=== PATIENT | female | born 1960 | race Caucasian/White ===

== ENCOUNTER 2016-10-02 08:38 | Emergency (ER) | payer OTHER ==
[~2016-10-02] VITALS: Ht 162.6 cm; Wt 68.0 kg
[~2016-10-02 08:38] MED LIST: ADVAIR 250-501 EACH INH; ADVAIR DISKUS 21 DSK INH; ADVIL200 MG PO; BENADRYL ALLERG25 M2 PO; BETAMETHASONE D15 GM TOP; CHERATUSSIN AC120 ML PO; CLEOCIN HCL300 M1 PO; DIPHENHYDRAMINE25 M4 PO; DOXYCYCLINE MO100 MG PO; DOXYCYCLINE100 MG PO; FLAG500 PO; GABAPENTIN100 M2 PO; HYDROCODONE/APA1 TA1 PO; IBUPROFEN600 M1 PO; IBUPROFEN800 M1 PO; MEDROL4 M2 PO; MUCINEX1200 M1 PO; NAPROXEN500 M2 PO; NORCO 325 MG-51 TAB PO; PANTOPRAZOLE SO40 M1 PO; PERCOCET 325 MG1 TA2 PO; PERMETHRIN60 GM TOP; POLYETHYLENE G255 GM PO; PREDNISONE10 MG PO; PREDNISONE20 M1 PO; PROAIR HFA0.09 MG/Ac INH; PROAIR HFA8.5 GM INH; TESSALON PERLE100 M1 PO; TRAMADOL HCL50 M1 PO; TRAMADOL50 MG PO; TRILIPIX135 M1 PO; ULTRAM50 M1 PO; ZITHROMAX250 M2 PO
--- NOTE | 2016-10-02 08:58 | ED GI/GU/ABDOMINAL COMPLAINT ---
History of Present Illness General Chief Complaint: Nausea, Vomiting, Diarrhea Stated Complaint: N/V/D Source: patient, old records Exam Limitations: no limitations Vital Signs & Intake/Output Vital Signs & Intake/Output Vital Signs Date Time Temp Pulse Resp B/P Pulse O2 O2 Flow FiO2 Ox Delivery Rate 10/02 1210 68 20 129/76 100 Room Air 10/02 1059 59 18 138/76 99 Room Air 10/02 0841 97.4 80 16 148/95 98 Room Air Allergies Coded Allergies: ciprofloxacin (Severe, RASH 08/09/16) Sulfa (Sulfonamide Antibiotics) (Intermediate, WEIGHT ON CHEST 08/09/16) oxycodone (Intermediate, HIVES 08/09/16) Penicillins (BABY ALLERGY 08/09/16) banana (UNKNOWN 08/09/16) clindamycin (RASH 08/09/16) kiwi (UNKNOWN 08/09/16) Reconcile Medications Dicyclomine Hydrochloride (Bentyl) 10 MG CAPSULE 1 CAP PO TID PRN abdominal cramps Diphenoxylate HCl/Atropine (Lomotil 2.5-0.025 MG Tablet) 2.5 MG-0.025 MG TABLET 1 TAB PO 4 TIMES/DAY PRN diarrhea Fenofibric Acid (Trilipix) 135 MG CAPSULE.DR 1 CAP PO DAILY CHOLESTEROL/ TRIGLYCERIDES (Reported) Fluticasone/Salmeterol (Advair 250-50 Diskus) 1 EACH BLST.W.DEV RESPIRATORY ( Reported) Ondansetron (Zofran Odt) 4 MG TAB.RAPDIS 1 TAB SL TID PRN nasuea Pantoprazole Sodium 40 MG TABLET.DR 1 TAB PO DAILY GI (Reported) Triage Note: 55 Y/O FEMALE C/O ABDOMINAL "CRAMPS" AND N/V/D X 2 DAYS. Triage Nurses Notes Reviewed? yes ? n Is pt currently ? No HPI: 55 yo female here with co nvd and abd cramps for the last 3 days. started sunday after eating fast food. 10x per day diarrhea, vomited 3-4 x per day. large amount of gas. co entire abdomen cramping pain, moderate. no dysuria. noted a small amount of BRB on toilet paper this am and burning in the anal region. no fever, no chills. sx are moderate. hx of abd surgery to remove benign tumor. (STEVE PEÑA) Past History Travel History Traveled to [place] past 21 day No Medical History Any Pertinent Medical History? 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 No (STEVE PEÑA) Review of Systems Review of Systems Constitutional: Reports: see HPI. EENTM: Reports: no symptoms. Respiratory: Reports: no symptoms. Cardiovascular: Reports: no symptoms. GI: Reports: see HPI. Genitourinary: Reports: no symptoms. Musculoskeletal: Reports: no symptoms. Skin: Reports: no symptoms. Neurological/Psychological: Reports: no symptoms. Hematologic/Endocrine: Reports: no symptoms. Immunologic/Allergic: Reports: no symptoms. All Other Systems: Reviewed and Negative (STEVE PEÑA) Physical Exam Physical Exam General Appearance: well developed/nourished (UNKEMPT) Respiratory: normal breath sounds, chest non-tender, no respiratory distress Cardiovascular: regular rate/rhythm Gastrointestinal: normal bowel sounds, soft, no organomegaly, TENDERNESS TO THE RLQ AND LUQ, Comments: Well-developed well-nourished no apparent distress. HEENT: Atraumatic, extraocular motion intact Neck: Supple, no lymphadenopathy Back: Nontender Respiratory: No respiratory distress Extremities: No edema, full range of motion Neuro: Alert and oriented x3 Psych: Mood affect normal, normal memory normal judgment. Skin: Warm and dry, no rash on exposed skin Core Measures ACS in differential dx? No Severe Sepsis Present: No Septic Shock Present: No (STEVE EPÑA) Progress Differential Diagnosis: AAA, AMI, appendicitis, biliary colic, bowel obstruction , colon cancer, cholecystitis, diverticulitis, ectopic , endometritis, esophageal varices, gastritis, hepatitis, hernia, hemorrhoids, ischemic bowel, inflamm bowel dis, intrauterine , kidney stone, Laura-Yuan tear, ovarian cyst, ovarian torsion, pancreatitis, PID/cervicitis, peptic ulcer, PUD/ GERD, perforated viscous, SBO, threatened AB, UTI/pyelo Plan of Care: Orders Procedure Date/time Status Saline Lock 10/02 916 Active LIPASE 10/02 916 Complete COMPREHENSIVE METABOLIC PANEL 10/02 916 Complete CBC WITHOUT DIFFERENTIAL 10/02 916 Complete AMYLASE 10/02 916 Complete Laboratory Tests 10/02/16 1011: Anion Gap 7, Estimated GFR > 60, BUN/Creatinine Ratio 21.4, Glucose 87, Calcium 8.7, Total Bilirubin 0.6, AST 25, ALT 44, Alkaline Phosphatase 90, Total Protein 6.3, Albumin 3.6, Globulin 2.7, Albumin/Globulin Ratio 1.3, Amylase 40, Lipase 192 10/02/16 0935: CBC w Diff NO MAN DIFF REQ, RBC 4.63, MCV 94.9, MCH 32.3 H, RDW 13.6, MPV 7.6, Gran % 75.4 H, Lymphocytes % 17.9 L, Monocytes % 4.6, Eosinophils % 1.6, Basophils % 0.5, Absolute Granulocytes 4.8, Absolute Lymphocytes 1.1 L, Absolute Monocytes 0.3, Absolute Eosinophils 0.1, Absolute Basophils 0, PUBS MCHC 34.1 Initial ED EKG: none Comments: patient treated with IV fluids, IV Zofran, Lomotil for her diarrhea. Laboratory values are unremarkable, patient reevaluated times, she is feeling better, diarrhea has significantly slowed and she is not nauseous or vomiting. She was given crackers and avelina arleth and she is tolerating by mouth fluids well. She is stable for discharge home. (STEVE PEÑA) Departure Departure Disposition: HOME OR SELF CARE Condition: Stable Clinical Impression Primary Impression: Gastroenteritis Secondary Impressions: Nausea vomiting and diarrhea Referrals: POLY FREEMAN APRN (PCP/Family) Additional Instructions: [employer] diet, clear liquids and advance as tolerated next 12-24 hours. Take medication as directed for nausea, abdominal pain and diarrhea. 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 I have also reviewed all the pertinent lab results and diagnostic results. I agree with the findings and the plan of care as documented in the PA's/WASTEWATER TREATMENT ENGINEER's documentation. [X] I have reviewed the ED Record and agree with the PA's/WASTEWATER TREATMENT ENGINEER's documentation. [] Additions or exceptions (if any) to the PAs/WASTEWATER TREATMENT ENGINEER's note and plan are summarized below: [] (KIERSTEN HAN DO
[2016-10-02 09:50] LABS: ABSOLUTE BASOPHIL COUNT 0 /CUMM (0.0-0.2); ABSOLUTE EOSINOPHIL COUNT 0.1 /CUMM (0.0-0.7); ABSOLUTE GRANULOCYTE CT 4.8 /CUMM (1.4-6.5); ABSOLUTE LYMPH COUNT 1.1 /CUMM (1.2-3.4); ABSOLUTE MONOCYTE COUNT 0.3 /CUMM (0.10-0.60); BASOPHIL % 0.5 % (0.0-2.0); EOSINOPHIL % 1.6 % (0-5); GRANULOCYTE % 75.4 % (42.2-75.2); HEMATOCRIT 43.9 % (37-47); MEAN CORPUSCULAR HGB 32.3 PG (27.0-31.0); MEAN CORPUSCULAR HGB CONC 34.1 G/DL (33.0-37.0); MEAN CORPUSCULAR VOLUME 94.9 FL (81.0-99.0); MEAN PLATELET VOLUME 7.6 FL (7.4-10.4); PLATELET COUNT 267 /CUMM (130-400); RBC DISTRIBUTION WIDTH 13.6 % (11.5-14.5); RED BLOOD CELL CT 4.63 /CUMM (4.20-5.40); WHITE BLOOD CELL COUNT 6.4 /CUMM (4.8-10.8)
[2016-10-02] MEDS ORDERED: BENTYL10 M1 PO (11:47)
[2016-10-02] MEDS ORDERED: LOMOTIL 2.5-0.1 EACH PO (11:47)
[2016-10-02] MEDS ORDERED: ZOFRAN ODT4 M1 SL (11:47)
[2016-10-02 12:10] VITALS: BP 129/76
== END 2016-10-02 12:18 ==
LOC: ERH 08:38
PROVIDERS: Physician Assistant Surgical
DX: K52.9 Noninfective gastroenteritis and colitis, unspecified (principal)
CPT/HCPCS: 96361; 96374; J2405

== ENCOUNTER 2016-10-12 14:19 | Emergency (ER) | payer OTHER ==
[~2016-10-12] VITALS: Ht 162.6 cm; Wt 68.0 kg
[~2016-10-12 14:19] MED LIST changes: +BENTYL10 M1 PO; +LOMOTIL 2.5-0.1 EACH PO; +ZOFRAN ODT4 M1 SL
[2016-10-12 14:25] VITALS: BP 156/91
--- NOTE | 2016-10-12 16:44 | RADIOLOGY REPORT ---
EXAMINATION: XR CHEST CLINICAL INFORMATION: Cough COMPARISON: CXR from 01/01/2016 and 02/17/2016 TECHNIQUE: 2 views of the chest were obtained. FINDINGS: Lungs are well expanded and clear. No acute airspace opacification or pleural effusion. Cardiac silhouette is normal in size. The mediastinal and hilar contours are normal. No acute skeletal abnormalities. There are a few old, healed anterolateral rib fractures of the lower right hemithorax. IMPRESSION: No acute cardiopulmonary findings compared to 01/01/2016.
--- NOTE | 2016-10-12 16:46 | ED INFLUENZA/URI COMPLAINT ---
History of Present Illness General Chief Complaint: General Adult Stated Complaint: CONGESTION, COUGH Source: patient Exam Limitations: no limitations Vital Signs & Intake/Output Vital Signs & Intake/Output Vital Signs Date Time Temp Pulse Resp B/P Pulse O2 O2 Flow FiO2 Ox Delivery Rate 10/12 1653 96 10/12 1425 97.8 98 16 156/91 96 Allergies Coded Allergies: ciprofloxacin (Severe, RASH 08/09/16) Sulfa (Sulfonamide Antibiotics) (Intermediate, WEIGHT ON CHEST 08/09/16) oxycodone (Intermediate, HIVES 08/09/16) Penicillins (BABY ALLERGY 08/09/16) banana (UNKNOWN 08/09/16) clindamycin (RASH 08/09/16) kiwi (UNKNOWN 08/09/16) Triage Note: PT STATES SHE IS HAVING HEAD CONGESTION. PT STATES SHE KEEPS COUGHING WITH PRODUCTIVE COUGH ONLY SOMETIMES. Triage Nurses Notes Reviewed? yes HPI: 55 yo F PMH COPD, GERD presenting with URI Sx. URI Sx for the past week with cough, congestion, rhinorrhea, mild sore throat. Associated wheezing with mild SOB, partially relieved by albuterol MDI. Tactile fevers and chills, diffuse myalgias/arthalgias, malaise, generalized weakness and fatigue. Denies rash, chest pain, palpitations, AP, N/V/D/C, bloody stools, urinary Sx, focal neuologic Sx. Hx of COPD, on advair maintenance inhalers, most recent steroids 2 -3 yrs ago, no prior ICU admissions or intubations. (+) Sick contacts, sister has similar Sx. No influenza vaccine this year. (MAXWELL CASILLAS,JES) Reconcile Medications Albuterol Sulfate (Proair Hfa) 90 MCG HFA.AER.AD 2 PUF INH Q4-6 PRN PRN COPD Azithromycin 250 MG TABLET 1 DP PO AD COPD 2 the first day followed by 1 for days 2-5 Dicyclomine Hydrochloride (Bentyl) 10 MG CAPSULE 1 CAP PO TID PRN abdominal cramps Diphenoxylate HCl/Atropine (Lomotil 2.5-0.025 MG Tablet) 2.5 MG-0.025 MG TABLET 1 TAB PO 4 TIMES/DAY PRN diarrhea Fenofibric Acid (Trilipix) 135 MG CAPSULE.DR 1 CAP PO DAILY CHOLESTEROL/ TRIGLYCERIDES (Reported) Fluticasone/Salmeterol (Advair 250-50 Diskus) 1 EACH BLST.W.DEV RESPIRATORY ( Reported) Ibuprofen 600 MG TABLET 1 TAB PO TID Myalgia with food Ondansetron (Zofran Odt) 4 MG TAB.RAPDIS 1 TAB SL TID PRN nasuea Pantoprazole Sodium 40 MG TABLET.DR 1 TAB PO DAILY GI (Reported) Prednisone 10 MG TABLET 40 MG PO DAILY COPD (ROSS CASILLAS,KIERSTEN Potts) Past History Travel History Traveled to [place] past 21 day No Medical History Any Pertinent Medical History? 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 No (MAXWELL CASILLAS,JES) Review of Systems Review of Systems Constitutional: Reports: chills, fever, malaise, weakness. Denies: unexplained weight loss. EENTM: Reports: nasal congestion, throat pain. Denies: eye pain, eye drainage, ear pain. Respiratory: Reports: cough, short of breath, wheezing. Denies: sputum production. Cardiovascular: Denies: chest pain, palpitations, peripheral edema. GI: Denies: abdominal pain, constipation, diarrhea, nausea, vomiting. Genitourinary: Denies: dysuria, frequency, hematuria. Musculoskeletal: Reports: back pain, joint pain, muscle pain. Denies: joint swelling, neck pain. Skin: Reports: no symptoms. Denies: rash. Neurological/Psychological: Reports: weakness. Denies: confusion, headache, tremors. Hematologic/Endocrine: Denies: no symptoms. Immunologic/Allergic: Denies: other. All Other Systems: Reviewed and Negative (JES ARREOLA MD) Physical Exam Physical Exam General Appearance: no apparent distress, alert, awake Head: atraumatic Eyes: Bilateral: normal appearance. Ears, Nose, Throat: pharynx normal, nasal congestion, nasal drainage Neck: supple, full range of motion Respiratory: chest non-tender, no respiratory distress, wheezing Cardiovascular: regular rate/rhythm, normal peripheral pulses Peripheral Pulses: 2+ radial (R), 2+ radial (L), 2+ dorsalis pedis (R), 2+ dorsalis pedis (L) Gastrointestinal: soft, non-tender Back: normal inspection Extremities: normal inspection Neurologic/Psych: no motor/sensory deficits Skin: intact (JES ARREOLA MD) Core Measures Severe Sepsis Present: No Septic Shock Present: No (ROSS CASILLAS,KIERSTEN Potts) Progress Differential Diagnosis: influenza, pneumonia, Viral URI, COPD exacerbation Plan of Care: Current Medications Sig/Davie Start time Last Medication Dose Stop Time Status Admin Albuterol Sulfate 3 ML ONCE ONE 10/12 1645 CAN (Proventil) 10/12 1646 55 yo F PMH COPD presenting with URI Sx x 1 week, non-prodctive cough, wheezing, mild SOB. VSS, pulmonary exam with diffuse end expiratory wheezes, normal WOB without respiratory distress. DDx: Viral URI, COPD exacerbation, PNA, influenza. Duoneb and prednisone given with improvement in pulmonary exam and subjective respiratory status per patient. Toradol with improvement in myalgias. CXR without focal consolidation or airspace disease. Will hold testing for influenza given patient outside of treatment window for tamiflu. D/You with return precautions, prednisone x 4 days, albuterol MDI, azithromycin, plan to f/u with PMD it the next 2-3 days. D/W Dr. Robles. (MAXWELL CASILLAS,JES) Initial ED EKG: none (ROSS CASILLAS,KIERSTEN Potts) Departure Departure Condition: Stable Referrals: POLY FREEMAN APRN (PCP/Family) Departure Forms: Customer Survey General Discharge Information (JES ARREOLA MD) Departure Disposition: HOME OR SELF CARE Clinical Impression Primary Impression: COPD (chronic obstructive pulmonary disease) Prescriptions: Current Visit Scripts Prednisone 40 MG PO DAILY 4 Days Azithromycin 1 DP PO AD #6 TAB 2 the first day followed by 1 for days 2-5 Albuterol Sulfate (Proair Hfa) 2 PUF INH Q4-6 PRN PRN COPD #1 INHAL Ibuprofen 1 TAB PO TID #30 TAB with food Resident Co-Sign Statement Statement: ED Attending supervision documentation- [x] I saw and evaluated the patient. I have also reviewed all the pertinent lab results and diagnostic results. I agree with the findings and the plan of care as documented in the Resident's documentation. [] I have reviewed the ED Record and agree with the Resident's documentation. [] Additions or exceptions (if any) to the Resident's note and plan are summarized below: [] (ROSS CASILLAS,KIERSTEN Potts) ED Attending Observation Initial Observation Note: I have seen and personally examined YONIS MARTINEZ on 10/12/16 at 1732. I agree with the current emergency department documentation. The disposition (admission or discharge) is uncertain at this time, she needs a period of observation for the following reason(s): The ED Nurse caring for this patient has been personally informed as to what the patient is being observed for. (MAXWELL CASILLAS,JES)
[2016-10-12] MEDS ORDERED: PREDNISONE10 M2 PO (17:50)
[2016-10-12] MEDS ORDERED: PROAIR HFA8.5 GM INH (17:50)
[2016-10-12] MEDS ORDERED: AZITHROMYCIN250 M1 PO (17:50)
[2016-10-12] MEDS ORDERED: IBUPROFEN600 M1 PO (18:15)
== END 2016-10-12 18:22 ==
LOC: ERH 14:19
DX: J44.9 Chronic obstructive pulmonary disease, unspecified (principal); Z72.0 Tobacco use
CPT/HCPCS: 1263; 96372; J1885

== ENCOUNTER 2016-11-11 13:22 | Emergency (ER) | payer OTHER ==
[~2016-11-11] VITALS: Ht 162.6 cm; Wt 70.3 kg
[~2016-11-11 13:22] MED LIST changes: +AZITHROMYCIN250 M1 PO; +PREDNISONE10 M2 PO
[2016-11-11 13:28] VITALS: BP 153/95
--- NOTE | 2016-11-11 13:42 | ED THROAT/DENTAL COMPLAINT ---
History of Present Illness General Chief Complaint: Sore Throat, Dental Pain Stated Complaint: TOOTH PAIN Source: patient, old records Exam Limitations: no limitations Vital Signs & Intake/Output Vital Signs & Intake/Output Vital Signs Date Time Temp Pulse Resp B/P Pulse O2 O2 Flow FiO2 Ox Delivery Rate 11/11 1328 97.1 92 20 153/95 97 Room Air Allergies Coded Allergies: ciprofloxacin (Severe, RASH 08/09/16) Sulfa (Sulfonamide Antibiotics) (Intermediate, WEIGHT ON CHEST 08/09/16) oxycodone (Intermediate, HIVES 08/09/16) Penicillins (BABY ALLERGY 08/09/16) banana (UNKNOWN 08/09/16) clindamycin (RASH 08/09/16) kiwi (UNKNOWN 08/09/16) Reconcile Medications Albuterol Sulfate (Proair Hfa) 90 MCG HFA.AER.AD 2 PUF INH Q4-6 PRN PRN COPD Azithromycin (Zithromax) 250 MG TABLET 1 DP PO AD DENTAL 2 the first day followed by 1 for days 2-5 Azithromycin 250 MG TABLET 1 DP PO AD COPD 2 the first day followed by 1 for days 2-5 Dicyclomine Hydrochloride (Bentyl) 10 MG CAPSULE 1 CAP PO TID PRN abdominal cramps Diphenoxylate HCl/Atropine (Lomotil 2.5-0.025 MG Tablet) 2.5 MG-0.025 MG TABLET 1 TAB PO 4 TIMES/DAY PRN diarrhea Fenofibric Acid (Trilipix) 135 MG CAPSULE.DR 1 CAP PO DAILY CHOLESTEROL/ TRIGLYCERIDES (Reported) Fluticasone/Salmeterol (Advair 250-50 Diskus) 1 EACH BLST.W.DEV RESPIRATORY ( Reported) Hydrocodone/Acetaminophen (Clute 5-325 Tablet) 5 MG-325 MG TABLET 1 TAB PO Q4- 6 PRN PRN PAIN Ibuprofen 600 MG TABLET 1 TAB PO TID Myalgia with food Ondansetron (Zofran Odt) 4 MG TAB.RAPDIS 1 TAB SL TID PRN nasuea Pantoprazole Sodium 40 MG TABLET.DR 1 TAB PO DAILY GI (Reported) Prednisone 10 MG TABLET 40 MG PO DAILY COPD Triage Note: PT C/O DENTAL PAIN. HAS APPOINTMENT WITH DENTIST ON SUNDAY Triage Nurses Notes Reviewed? yes Onset: Abrupt Duration: day(s): (2), constant Timing: recent history Injury Environment: home Severity: moderate, severe Severity Numbers: 9 Modifying Factors: Worsens With: eating. Associated Symptoms: DENIES HPI: 55-year-old female presents emergency room complaining of right upper dental pain that came on yesterday while eating a [place]nee. She states she is scheduled at the tooth removed next week by a dentist on Sunday. She is not taken anything for the pain which is worse with palpation eating and radiates up into her right upper cheek. She denies any change in her voice difficulty swallowing or facial swelling no fever no chills. There are no other modifying factors or associated symptoms otherwise. Past History Travel History Traveled to [place] past 21 day No Medical History Any Pertinent Medical History? 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 No Review of Systems Review of Systems Constitutional: Reports: see HPI. All Other Systems: Reviewed and Negative Comments Review of systems: See HPI, All other systems negative. Constitutional, no chills no fever, no malaise HEENT: no sore throat no congestion, no ear pain Cardiovascular: No chest pain , no palpitation Skin, no jaundice no rashes, no change in skin Respiratory: No dyspnea no cough no sputum GI: No nausea no vomiting, no diarrhea, : No dysuria Muscle skeletal: No joint pain, no back pain, no neck pain, Neurologic: No numbness no headache Psych: No stress Heme/endocrine: No bruising no bleeding Immunology: No lymphadenopathy Physical Exam Physical Exam General Appearance: well developed/nourished, no apparent distress, alert, awake Mouth/Throat: normal mouth inspection, pharynx normal, dental tenderness Comments: Well-developed well-nourished patient in no apparent distress. Head/Face: Atraumatic, r sided maxillary sinus tenderness, no facial swelling Eyes: PERRL, EOMI, no conjunctival injection. No nystagmus Ear:External auditory canals clear, no erythema, no FB. Nose: atraumatic.Normal inspection: No bleeding, no septal hematoma Throat: Moist mucous membranes.Pharynx normal. No pharyngeal erythema/exudate seen. No stridor/drooling or assymetry. No swelling or edema. Poor dentition dental tenderness no trismus Neck: Supple, no lymphadenopathy, FROM Back: FROM, Nontender Cardiovascular: Regular rate and rhythms no murmurs rubs or gallops, Respiratory: Chest nontender.There were no bony deformities, no asymmetry. No respiratory distress. Patient speaking in full complete sentences. Breath sounds clear to auscultation bilaterally: NO W/R/R Extremities: full range of motion Neuro: Alert and oriented x3 Skin: Warm & dry;No appreciable rash on exposed skin Psych: Mood affect normal, normal memory normal judgment. Core Measures ACS in differential dx? No Severe Sepsis Present: No Septic Shock Present: No Progress Differential Diagnosis: carious tooth, epiglottitis, Ludwigs angina, odontogenic abscess, shila-tonsillar abscess, stomatitis/gingivitis, tooth fracture Plan of Care: advised close f/u with dentist, rx for vicodin and azithro provided given allergies. she feels comfortable with plan, i answered all of her questions Departure Departure Time of Disposition: 1348 Disposition: HOME OR SELF CARE Condition: Stable Clinical Impression Primary Impression: Toothache Referrals: POLY FREEMAN APRN (PCP/Family) Additional Instructions: FOLLOW UP SCHEDULED TO HAVE TOOTH REMOVED. VICODIN for breakthrough pain use caution as is a narcotic highly addictive. No driving or drinking alcohol taking. Azithromycin as directed These prescriptions were sent to the [facility] Departure Forms: Customer Survey General Discharge Information Prescriptions: Current Visit Scripts Azithromycin (Zithromax) 1 DP PO AD #6 TAB 2 the first day followed by 1 for days 2-5 Hydrocodone/Acetaminophen (Clute 5-325 Tablet) 1 TAB PO Q4-6 PRN PRN PAIN #10 TAB
[2016-11-11] MEDS ORDERED: ZITHROMAX250 M2 PO (13:49)
[2016-11-11] MEDS ORDERED: NORCO 5-325 TA1 EACH PO (13:49)
== END 2016-11-11 14:05 ==
LOC: ERH 13:22
DX: K08.89 Other specified disorders of teeth and supporting structures (principal)

== ENCOUNTER 2016-12-17 17:39 | Emergency (ER) | payer OTHER ==
[~2016-12-17] VITALS: Ht 162.6 cm; Wt 68.0 kg
[~2016-12-17 17:39] MED LIST changes: +NORCO 5-325 TA1 EACH PO
[2016-12-17 17:46] VITALS: BP 160/80
[2016-12-17] MEDS ORDERED: MULTI-DAY VITA1 EACH PO (20:01)
--- NOTE | 2016-12-17 20:36 | RADIOLOGY REPORT ---
EXAMINATION: XR ELBOW, LEFT CLINICAL INFORMATION: Left elbow pain after fall COMPARISON: None TECHNIQUE: AP, lateral, and oblique views of the left elbow. FINDINGS: The bones and soft tissues are normal. No fracture or joint effusion. Alignment is anatomic. Joint spaces are maintained. IMPRESSION: No acute osseous abnormality of the left elbow.
--- NOTE | 2016-12-17 20:42 | ED UPPER/LOWER EXTREMITY COMPL ---
History of Present Illness General Chief Complaint: Upper Extremity Injury Stated Complaint: LEFT ELBOW PAIN, S/P "FALLING IN SINK HOLE" Source: patient Exam Limitations: no limitations Vital Signs & Intake/Output Vital Signs & Intake/Output Vital Signs Date Time Temp Pulse Resp B/P B/P Pulse O2 O2 Flow FiO2 Mean Ox Delivery Rate 12/17 1746 160/80 12/17 1745 97.9 114 20 159/101 96 Room Air ED Intake and Output 12/18 0000 12/17 1200 Intake Total 120 Output Total Balance 120 Intake, Oral 120 Patient 150 lb Weight Weight Reported by Patient Measurement Method Allergies Coded Allergies: ciprofloxacin (Severe, RASH 12/17/16) Sulfa (Sulfonamide Antibiotics) (Intermediate, WEIGHT ON CHEST 12/17/16) oxycodone (Intermediate, HIVES 12/17/16) Penicillins (BABY ALLERGY 12/17/16) banana (THROAT SWELLS AND CANT SWALLOW, ABD PAIN EXTREME 12/17/16) clindamycin (RASH 12/17/16) kiwi (THROAT SWELLS, CANT SWALLOW, ABD PAIN EXTREME 12/17/16) Triage Note: TRIAGE: PT TO ER C/C PAIN TO L ELBOW S/P FALL THIS MORNING. STATES SHE FELL INTO A SINK HOLE AT [facility] WHILE LOOKING FOR WORMS. Triage Nurses Notes Reviewed? yes HPI: This patient is a 56-year-old female who presented to the emergency department today for evaluation of left elbow pain status post fall. The patient reported that he was running to catch up with her friends when she fell into a sink hole. She reported, "I was trying to go help them get worms because I know where to find them and I fell." She denied losing consciousness or hitting her head. The patient is reporting 10 out of 10, sharp and throbbing pain to her left elbow which radiates down into her hand. The pain is constant and worse with movement. The patient denied any shoulder or neck pain. No numbness or tingling in her extremity (ASHLYN GRANADOS,MADELINE) Reconcile Medications Albuterol Sulfate (Proair Hfa) 90 MCG HFA.AER.AD 2 PUF INH Q4-6 PRN PRN COPD Fluticasone/Salmeterol (Advair 250-50 Diskus) 1 EACH BLST.W.DEV 1 PUF INH BID COPD (Reported) Multivitamin (Multi-Day Vitamins) 1 EACH TABLET 1 TAB PO DAILY SUPPLEMENT ( Reported) Pantoprazole Sodium 40 MG TABLET.DR 1 TAB PO DAILY GI (Reported) Tramadol HCl 50 MG TABLET 1 TAB PO BIDP PRN PAIN (OTIS CASILLAS,HÉCTOR Goodman) Past History Travel History Traveled to [place] past 21 day No Medical History Any Pertinent Medical History? 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 No (MADELINE GOLDBERG PA-C) Review of Systems Review of Systems Constitutional: Reports: no symptoms. EENTM: Reports: no symptoms. Respiratory: Reports: no symptoms. Cardiovascular: Reports: no symptoms. Gastrointestinal/Abdominal: Reports: no symptoms. Genitourinary: Reports: no symptoms. Musculoskeletal: Reports: see HPI. Skin: Reports: no symptoms. Neurological/Psychological: Reports: no symptoms. All Other Systems: Reviewed and Negative (MADELINE GOLDBERG PA-C) Physical Exam Physical Exam General Appearance: well developed/nourished, no apparent distress, alert, awake Comments: Well-developed well-nourished person in no acute distress HEENT: Normal EENT exam, head normocephalic/atraumatic Pupils equally round and reactive to light. Neck: Supple, no lymphadenopathy Back: Normal gait. Normal inspection Respiratory: Chest nontender. No respiratory distress. Speaking in full sentences Left upper extremity: Full range of motion at the shoulder. Full range of motion at the wrist. Ecchymosis noted to the lateral epicondyle. Mild amount of edema to the elbow. No overlying erythema. No bony or muscular deformities appreciated. Radial brachial pulses 2+ and strong. Tenderness to palpation over the lateral and medial epicondyles Neuro: Alert oriented x3, motor sensory normal, cranial nerves II through XII grossly intact. Skin: No appreciable rash on exposed skin, skin is warm and dry. Psych: Mood and affect is normal, memory and judgment is normal. (ASHLYN GRANADOS,MADELINE) Progress Differential Diagnosis: compartment syndrome, contusion, dislocation, fracture, septic arthritis, sprain, tendon injury Plan of Care: Orders Procedure Date/time Status Durable Medical Equipment 12/18 2043 Active Diagnostic Imaging: Viewed by Me: Radiology Read. Discussed w/RAD: Radiology Read. Radiology Impression: PATIENT: YONIS MARTINEZ PRESENT AGE: 56 PATIENT ACCOUNT NO: [id number] : 60 LOCATION: [facility] ORDERING PHYSICIAN: HÉCTOR BERG MD SERVICE DATE: 12/17/16 EXAM TYPE: RAD - XRY-ELBOW 3 OR MORE VIEWS, L EXAMINATION: XR ELBOW, LEFT CLINICAL INFORMATION: Left elbow pain after fall COMPARISON: None TECHNIQUE: AP, lateral, and oblique views of the left elbow. FINDINGS: The bones and soft tissues are normal. No fracture or joint effusion. Alignment is anatomic. Joint spaces are maintained. IMPRESSION: No acute osseous abnormality of the left elbow. DICTATED BY: RAVIN FLORES MD DATE/TIME DICTATED:12/17/162031 CLINIC CMA:LINO DATE/TIME TRANSCRIBED:12/17/162031 CONFIDENTIAL, DO NOT COPY WITHOUT APPROPRIATE AUTHORIZATION. <Electronically signed in Other Vendor System> SIGNED BY: RAVIN FLORES MD 12/17/162035 (MADELINE GOLDBERG PA-C) Departure Departure Disposition: HOME OR SELF CARE Condition: Stable Clinical Impression Primary Impression: Contusion Qualifiers: Encounter type: initial encounter Contusion area: elbow Laterality: left Qualified Code: S50.02XA - Contusion of left elbow, initial encounter Referrals: POLY FREEMAN APRN (PCP/Family) DUDLEY ALVAREZ MD Additional Instructions: Use the sling provided to you here for extra support. Apply ice to the affected area for 15-20 minutes, 3 or 4 times a day. [id number] ibuprofen for inflammation. Take medication for pain as prescribed. Elevate your elbow when possible. You may follow up with the orthopedist's information has been provided to you in this packet for further evaluation. Return for any worsening symptoms or concerns. Departure Forms: Customer Survey General Discharge Information Prescriptions: Current Visit Scripts Tramadol HCl 1 TAB PO BIDP PRN PAIN #6 TAB (MADELINE GOLDBERG PA-C) PA/[employer]ORK SL[employer] SAWYER Co-Sign Statement Statement: ED Attending supervision documentation- [] I saw and evaluated the patient. I have also reviewed all the pertinent lab results and diagnostic results. I agree with the findings and the plan of care as documented in the PA's/C[employer] SL[employer] SAWYER's documentation. [x] I have reviewed the ED Record and agree with the PA's/[employer] SAWYER's documentation. [] Additions or exceptions (if any) to the PAs/C[employer] SLAB[employer] SAWYER's note and plan are summarized below: [] (OTIS CASILLAS,HÉCTOR Goodman)
[2016-12-17] MEDS ORDERED: TRAMADOL HCL50 M1 PO (20:45)
== END 2016-12-17 20:54 ==
LOC: ERH 17:39
DX: S50.02XA Contusion of left elbow, initial encounter (principal); W19.XXXA Unspecified fall, initial encounter; Y93.02 Activity, running; Y92.9 Unspecified place or not applicable
CPT/HCPCS: 73080-LT